=== PATIENT | male | born 1960 | race Caucasian/White ===

== ENCOUNTER 2017-06-23 16:07 | Emergency (ER) | payer MEDICAID ==
[~2017-06-23] VITALS: Ht 175.3 cm; Wt 71.6 kg
[2017-06-23] MEDS ORDERED: SODIUM CHLORIDE FLUSH 10ML SYR IVF ONE (16:30)
[2017-06-23 16:47] LABS: HEMATOCRIT 39.5 % (39.2-51.8); HEMOGLOBIN 13.2 g/dL (13.7-18.0); WHITE BLOOD COUNT 5.7 x10^3/uL (3.4-10)
[2017-06-23 16:59] LABS: ASPARTATE AMINO TRANSFERASE 219 U/L (15-37); BLOOD UREA NITROGEN 24 mg/dL (7-18)
[2017-06-23 18:35] VITALS: BP 137/93
== END 2017-06-23 18:38 | disposition home or self-care (01) ==
LOC: ED 17:33
DX: B19.20 Unspecified viral hepatitis C without hepatic coma (principal); L29.9 Pruritus, unspecified; R74.0 Nonspecific elevation of levels of transaminase and lactic acid dehydrogenase [LDH]; J44.9 Chronic obstructive pulmonary disease, unspecified
CPT/HCPCS: 36415; 71010; 80053; 83690; 85025; 99285; Q0177

== ENCOUNTER 2017-07-07 10:34 | Emergency (ER) | payer MEDICAID ==
[~2017-07-07] VITALS: Ht 175.3 cm; Wt 72.9 kg
[2017-07-07 10:36] VITALS: BP 120/77
== END 2017-07-07 11:37 | disposition home or self-care (01) ==
LOC: ED 11:29
DX: L20.9 Atopic dermatitis, unspecified (principal); T36.1X5A Adverse effect of cephalosporins and other beta-lactam antibiotics, initial encounter; K70.10 Alcoholic hepatitis without ascites; K71.50 Toxic liver disease with chronic active hepatitis without ascites; Y92.89 Other specified places as the place of occurrence of the external cause
CPT/HCPCS: 99283

== ENCOUNTER 2017-07-23 14:01 | Emergency (ER) | payer SELFPAY ==
[~2017-07-23] VITALS: Ht 175.3 cm; Wt 72.8 kg
[2017-07-23 14:11] VITALS: BP 116/75
[2017-07-23] MEDS ORDERED: DIAZEPAM 5 MG TABLET PO ONE (15:00)
[2017-07-23] MEDS ORDERED: KETOROLAC 30 MG/1 ML IM ONE (15:00)
[2017-07-23] MEDS ORDERED: KETOROLAC 30 MG/1 ML ONE (15:07)
[2017-07-23] MEDS ORDERED: DIAZEPAM 5 MG TABLET ONE (15:07)
== END 2017-07-23 15:30 | disposition home or self-care (01) ==
LOC: MERGE 14:30 → ED 14:30
DX: S39.012A Strain of muscle, fascia and tendon of lower back, initial encounter (principal); X58.XXXA Exposure to other specified factors, initial encounter; Y93.89 Activity, other specified; Y92.89 Other specified places as the place of occurrence of the external cause; Y99.8 Other external cause status
CPT/HCPCS: 72110; 99284

== ENCOUNTER 2017-08-13 20:48 | Emergency (ER) | payer MEDICAID, OTHER ==
[~2017-08-13] VITALS: Ht 175.3 cm; Wt 74.0 kg
[2017-08-13 20:50] VITALS: BP 119/80
[2017-08-13 21:30] LABS: HEMATOCRIT 41.4 % (39.2-51.8); WHITE BLOOD COUNT 8.3 x10^3/uL (3.4-10)
[2017-08-13 21:41] LABS: ASPARTATE AMINO TRANSFERASE 111 U/L (15-37); BLOOD UREA NITROGEN 29 mg/dL (7-18)
== END 2017-08-13 23:05 | disposition home or self-care (01) ==
LOC: ED 21:54
DX: E86.0 Dehydration (principal); L29.9 Pruritus, unspecified; J44.9 Chronic obstructive pulmonary disease, unspecified; I10 Essential (primary) hypertension
CPT/HCPCS: 36415; 80053; 85025; 85610; 99284